=== PATIENT | female | born 1945 | race Hispanic/Latino ===

== ENCOUNTER 2023-06-24 16:07 | Emergency (ER) | payer OTHER ==
[2023-06-24 17:16] LABS: Absolute Basophils 0.1 K/uL (0-0.5); Absolute Lymphocytes (CBC) 1.6 K/uL (0.7-4.9); Absolute Monocytes 0.6 K/uL (0.1-1.3); Absolute Neutrophil 7.9 K/uL (1.8-8.0); Basophils % 0.5 % (0-1.3); Eosinophils % 0.4 % (0-4.4); Hematocrit 42.5 % (36.0-45.0); Hemoglobin 14.8 g/dL (12.0-15.0); Lymphocytes % 15.6 % (15.3-44.8); MCH 29.6 pg (27.0-35.0); MCHC 34.8 g/dL (32.0-36.0); MCV 85.3 fL (80-100); MPV 7.2 fL (7.6-11.3); Monocytes % 6.4 % (3.3-12.3); Neutrophils % 77.1 % (41.7-73.7); Nucleated Red Blood Cells % 0.2 % (0-0); Platelets 275 thou/uL (152-406); RBC Red Blood Cell Count 4.98 M/uL (3.86-4.86)
[2023-06-24 17:26] LABS: Albumin 3.4 g/dL (3.4-5.0); Albumin/Globulin Ratio 0.9 (1.1-1.8); Anion Gap 6.2 mEq/L (5.0-15.0); Bilirubin Direct 0.3 mg/dL (0-0.2); Bilirubin Indirect, Calculated 0.8 mg/dL (0.2-0.8); Bilirubin Total 1.1 mg/dL (0.2-1.0); Globulin 3.6 g/dL (2.3-3.5); Magnesium 1.9 mg/dL (1.6-2.4); Potassium 3.2 mEq/L (3.5-5.1); Troponin High Sensitivity 7.2 pg/mL (<58.9)
[2023-06-24] MEDS ORDERED: cloNIDine HCL 0.1 MG TAB ONE (17:52)
--- NOTE | 2023-06-24 18:31 | RAD REPORT ---
EXAM DESCRIPTION: CT - Head Brain Wo Cont - 06/24/2023 6:18 pm CLINICAL HISTORY: Dizziness/headache COMPARISON: 2014 TECHNIQUE: Computed axial tomography of the head was obtained. IV contrast was not requested. All CT scans are performed using dose optimization technique as appropriate and may include automated exposure control or mA/KV adjustment according to patient size. FINDINGS: An intracranial bleed is not seen The ventricles are normal in caliber No extra-axial fluid collection is noted. No significant hyperdensity with the brain noted. Fluid within the sinuses/ mastoids is not seen. Chronic left maxillary sinusitis IMPRESSION: No acute intracranial abnormality is seen If patient's symptoms persist MRI of the brain would be recommended
[2023-06-24] MEDS ORDERED: ONDANSETRON 4 MG/2 ML VIAL ONE (18:36)
--- NOTE | 2023-06-24 18:45 | RAD REPORT ---
EXAM DESCRIPTION: CTHead angio06/24/2023 6:18 pm CLINICAL HISTORY: Headache, dizziness, hypertension COMPARISON: none TECHNIQUE: 100 cc Isovue [address] angiogram of the head was obtained. 3D MIPS reconstruction performed. All CT scans are performed using dose optimization technique as appropriate and may include automated exposure control or mA/KV adjustment according to patient size. FINDINGS: The basilar, anterior cerebral, middle cerebral and posterior cerebral arteries do not dem onstrate a significant stenosis origin right posterior cerebral artery Mild calcified plaque distal internal carotid arteries An aneurysm is not seen No large vessel occlusion IMPRESSION: No significant abnormality is displayed
--- NOTE | 2023-06-24 18:46 | RAD REPORT ---
EXAM DESCRIPTION: Hoa Angio06/24/2023 6:18 pm CLINICAL HISTORY: Dizziness/headache/hypertension COMPARISON: None TECHNIQUE: 100 cc Isovue [address] angiogram of the neck was obtained. 3D MIPS reconstruction performed. All CT scans are performed using dose optimization technique as appropriate and may include automated exposure control or mA/KV adjustment according to patient size. FINDINGS: Visualized aortic arch and great vessels demonstrate no significant abnormality Mild calcified plaque within the common carotid, internal carotid and external carotid arteries bilat erally unremarkable Vertebral arteries unremarkable No dissection is seen. No high-grade stenosis [place] crieria Mild stenosis 0 to 49 % Moderate stenosis 50-69% Severe stenosis 70-99% IMPRESSION: No significant abnormality is displayed
--- NOTE | 2023-06-24 19:05 | ER ---
Nurse's Notes [facility] Name: Cathi Carrillo Age: 77 yrs Sex: Female : 1945 Arrival Date: 06/24/2023 Time: 16:07 Bed 15 Private MD: Diagnosis: Essential (primary) hypertension;Headache Presentation: 06/23 16:11 Chief complaint: Patient states: dizziness, nausea, feeling lightheaded. pt reports she as6 believes it's her new medicine. Coronavirus screen: At this time, the client does not indicate any symptoms associated with coronavirus-19. Ebola Screen: No symptoms or risks identified at this time. Initial Sepsis Screen: Does the patient meet any 2 criteria? No. Patient's initial sepsis screen is negative. Does the patient have a suspected source of infection? No. Patient's initial sepsis screen is negative. Risk Assessment: Do you want to hurt yourself or someone else? Patient reports no desire to harm self or others. Onset of symptoms was June 24, 2023. 16:11 Method Of Arrival: Ambulatory as6 16:11 Acuity: CAMILLE 3 as6 Historical: - Allergies: 16:12 Codeine; as6 - Home Meds: 19:35 losartan-hydrochlorothiazide 100-25 mg Oral tablet daily [Active]; metoprolol tartrate tl4 50 mg Oral tablet 2 times per day [Active]; pravastatin 40 mg Oral tablet every day at bedtime [Active]; - PMHx: 16:12 Hypercholesterolemia; Hypertensive disorder; as6 - PSHx: 16:12 Appendectomy; hernia; as6 - Immunization history:: Adult Immunizations up to date. - Infectious Disease History:: Denies. - Social history:: Smoking status: Patient denies any tobacco usage or history of. Screenin:44 [facility] ED Fall Risk Assessment (Adult) History of falling in the last 3 months, tl4 including since admission No falls in past 3 months (0 pts) Confusion or Disorientation No (0 pts) Intoxicated or Sedated No (0 pts) Impaired Gait No (0 pts) Mobility Assist Device Used No (0 pt) Altered Elimination No (0 pt) Score/Fall Risk Level 0 - 2 = Low Risk Oriented to surroundings, Maintained a safe environment, Educated pt \T\ family on fall prevention, incl call for assistance when getting out of bed, Assessed \T\ reinforced patient's understanding of fall precautions. Abuse screen: Denies threats or abuse. Denies injuries from another. Nutritional screening: No deficits noted. Tuberculosis screening: No symptoms or risk factors identified. Assessment: 16:25 General: Appears in no apparent distress. Behavior is calm, cooperative. Pain: Denies tl4 pain. Neuro: Level of Consciousness is awake, alert, obeys commands, Oriented to person, place, time, situation, Moves all extremities. Speech is normal, Facial symmetry appears normal, Pupils are PERRLA, Intact. Neuro: Reports dizziness. Cardiovascular: Capillary refill < 3 seconds Patient's skin is warm and dry. Respiratory: Airway is patent Respiratory effort is even, unlabored, Respiratory pattern is regular, symmetrical, Breath sounds are clear bilaterally. GI: Abdomen is non-distended, Abd is soft and non tender X 4 quads. Reports nausea. : No deficits noted. EENT: No signs and/or symptoms were reported regarding the EENT system. Derm: No signs and/or symptoms reported regarding the dermatologic system. Musculoskeletal: No signs and/or symptoms reported regarding the musculoskeletal system. 17:42 Reassessment: Patient and/or family updated on plan of care and expected duration. Pain tl4 level reassessed. Patient is alert, oriented x 3, equal unlabored respirations, skin warm/dry/pink. Patient denies pain at this time. 18:57 Reassessment: Patient and/or family updated on plan of care and expected duration. Pain tl4 level reassessed. Patient is alert, oriented x 3, equal unlabored respirations, skin warm/dry/pink. Pt states nausea is better. Pt denies any needs at this time. Family at bedside. Will continue to monitor Patient denies pain at this time. Vital Signs: 16:11 BP 199 / 79; Pulse 66; Resp 18 S; Temp 97.8(TE); Pulse Ox 95% on R/A; Weight 92.99 kg as6 (R); Height 5 ft. 0 in. (R); Pain 0/10; 17:00 BP 170 / 77; Pulse 64; Resp 18; Pulse Ox 100% on R/A; tl4 17:30 BP 175 / 82; Pulse 65; Resp 14; Pulse Ox 100% on R/A; tl4 18:00 BP 171 / 80; Pulse 64; Resp 19; Pulse Ox 100% on R/A; tl4 18:38 BP 170 / 71; Pulse 74; Resp 17; Pulse Ox 100% on R/A; tl4 19:32 BP 185 / 84; Pulse 78; Resp 19; Temp 98.4(O); Pulse Ox 100% ; tl4 16:11 Body Mass Index 40.04 (92.99 kg, 152.4 cm) as6 16:11 Pain Scale: Adult as6 ED Course: 16:08 Patient arrived in ED. im 16:11 Basilia Pérez FNP-C is PHCP. kb 16:11 Aaron Odom MD is Attending Physician. kb 16:12 Triage completed. as6 16:12 Arm band placed on right wrist. as6 16:22 Phil Cain, RN is Primary Nurse. tl4 16:33 Provided Education on: ED process, call castaneda. tl4 16:57 Cool cloth applied. Client placed on continuous cardiac and pulse oximetry monitoring. [email or web address] NIBP monitoring applied. production hand on. Pulse ox on. 16:57 Initial lab(s) drawn, by me, sent to lab. EKG done, by ED staff. jg11 16:57 Inserted saline lock: 22 gauge in right antecubital area, using aseptic technique. jg11 Blood collected. 18:20 CT Head Angio In Process Unspecified. EDMS 18:20 CT Neck Angio In Process Unspecified. EDMS 18:20 CT Head Brain wo Cont In Process Unspecified. EDMS 18:45 No provider procedures requiring assistance completed. tl4 19:33 IV discontinued, intact, bleeding controlled, No redness/swelling at site. Pressure tl4 dressing applied. 19:34 Patient has correct armband on for positive identification. Placed in gown. Bed in low tl4 position. Call light in reach. Side rails up X2. Adult w/ patient. Administered Medications: 17:56 Drug: cloNIDine PO 0.1 mg PO once Route: PO; tl4 19:02 Follow up: Response: No adverse reaction tl4 19:02 Drug: Ondansetron IVP 4 mg IVP once; over 2 minutes Route: IVP; Infused Over: 2 mins; tl4 Site: right antecubital; 19:31 Follow up: Response: No adverse reaction; Nausea is decreased tl4 Medication: 18:45 VIS not applicable for this client. tl4 Outcome: 19:04 Discharge ordered by MD. vogel 19:33 Discharged to home ambulatory, with family, tl4 19:33 Condition: stable 19:33 Discharge instructions given to patient, family, Instructed on discharge instructions, follow up and referral plans. Demonstrated understanding of instructions, follow-up care, 19:35 Patient left the ED. tl4 Signatures: Dispatcher [employer] EDBasilia Nugent, RERE HOOPER-[place] Ibrahim RN RN as6 Susy Cruz Toni RN RN tl4 Joseph Jade jg11
--- NOTE | 2023-06-24 19:05 | EDPHYS ---
Physician Documentation [facility] Name: Cathi Carrillo Age: 77 yrs Sex: Female : 1945 Arrival Date: 06/24/2023 Time: 16:07 Bed 15 Private MD: ED Physician Aaron Odom HPI: 06/23 16:17 This 77 yrs old Female presents to ER via Ambulatory with complaints of High kb Blood Pressure, Dizziness, Nausea. 16:17 Pt is a 77 year old female who presents for high blood pressure, headache and dizziness kb that started this morning. states she takes losartan, metoprolol and HCTZ for HTN and took all medications this morning as normal. States she has been told to take a second dose of losartan if her BP is over 140 so she took a second dose around 1330, but pressure has not improved. Pt states she was seen by a neurologist yesterday for tremors and started on primidone. There have been no other changes in diet or medications. Historical: - Allergies: 16:12 Codeine; as6 - Home Meds: 19:35 losartan-hydrochlorothiazide 100-25 mg Oral tablet daily [Active]; metoprolol tartrate tl4 50 mg Oral tablet 2 times per day [Active]; pravastatin 40 mg Oral tablet every day at bedtime [Active]; - PMHx: 16:12 Hypercholesterolemia; Hypertensive disorder; as6 - PSHx: 16:12 Appendectomy; hernia; as6 - Immunization history:: Adult Immunizations up to date. - Infectious Disease History:: Denies. - Social history:: Smoking status: Patient denies any tobacco usage or history of. ROS: 16:24 Constitutional: As per HPI kb Exam: 16:24 Constitutional: This is a well developed, well nourished patient who is awake, alert, kb and in no acute distress. Head/Face: Normocephalic, atraumatic. ENT: Moist Mucous membranes Cardiovascular: Regular rate Respiratory: Respirations even and unlabored. No increased work of breathing. Talking in full sentences Abdomen/GI: Soft, non-tender. No distention Skin: Warm, dry with normal turgor. Normal color. MS/ Extremity: Pulses equal, no cyanosis. Neurovascular intact. Full, normal range of motion. Neuro: Awake and alert, GCS 15, oriented to person, place, time, and situation. Moves all extremities. Normal gait. 19:33 ECG was reviewed by the Attending Physician. kb Vital Signs: 16:11 BP 199 / 79; Pulse 66; Resp 18 S; Temp 97.8(TE); Pulse Ox 95% on R/A; Weight 92.99 kg as6 (R); Height 5 ft. 0 in. (R); Pain 0/10; 17:00 BP 170 / 77; Pulse 64; Resp 18; Pulse Ox 100% on R/A; tl4 17:30 BP 175 / 82; Pulse 65; Resp 14; Pulse Ox 100% on R/A; tl4 18:00 BP 171 / 80; Pulse 64; Resp 19; Pulse Ox 100% on R/A; tl4 18:38 BP 170 / 71; Pulse 74; Resp 17; Pulse Ox 100% on R/A; tl4 19:32 BP 185 / 84; Pulse 78; Resp 19; Temp 98.4(O); Pulse Ox 100% ; tl4 16:11 Body Mass Index 40.04 (92.99 kg, 152.4 cm) as6 16:11 Pain Scale: Adult as6 MDM: 16:11 Patient medically screened. kb 19:04 Differential diagnosis: hypertensive crisis, CVA, intracerebral hemorrhage, medication kb interaction. Data reviewed: vital signs, nurses notes. Historians other than the Patient: Daughter/Son: daughter. Counseling: I had a detailed discussion with the patient and/or guardian regarding the historical points, exam findings, and any diagnostic results supporting the discharge/admit diagnosis, lab results, radiology results, the need for outpatient follow up, a family practitioner, to return to the emergency department if symptoms worsen or persist or if there are any questions or concerns that arise at home. 06/23 16:16 Order name: Basic Metabolic Panel; Complete Time: 17:34 kb 06/23 16:16 Order name: CBC with Diff; Complete Time: 17:17 kb 06/23 16:16 Order name: Hepatic Function; Complete Time: 17:34 kb 06/23 16:16 Order name: Magnesium; Complete Time: 17:34 kb 06/23 16:16 Order name: Troponin High Sensitivity; Complete Time: 17:34 kb 06/23 17:41 Order name: CT Head Angio; Complete Time: 18:50 kb 06/23 17:41 Order name: CT Neck Angio; Complete Time: 18:50 kb 06/23 18:09 Order name: CT Head Brain wo Cont; Complete Time: 18:32 kb 06/23 16:16 Order name: Cardiac monitoring; Complete Time: 17:50 kb 06/23 16:16 Order name: EKG - Nurse/Tech; Complete Time: 17:50 kb 06/23 16:16 Order name: IV Saline Lock; Complete Time: 17:50 kb 06/23 16:16 Order name: Labs collected and sent; Complete Time: 17:50 kb 06/23 16:16 Order name: NPO; Complete Time: 17:50 kb 06/23 16:16 Order name: O2 Per Protocol; Complete Time: 16:25 kb 06/23 16:16 Order name: O2 Sat Monitoring; Complete Time: 16:25 kb EC:33 Rate is 61 beats/min. Rhythm is regular. QRS [place] is Normal. DE interval is normal at kb 150 msec. QRS interval is normal at 92 msec. QT interval is prolonged at 642 msec. Administered Medications: 17:56 Drug: cloNIDine PO 0.1 mg PO once Route: PO; tl4 19:02 Follow up: Response: No adverse reaction tl4 19:02 Drug: Ondansetron IVP 4 mg IVP once; over 2 minutes Route: IVP; Infused Over: 2 mins; tl4 Site: right antecubital; 19:31 Follow up: Response: No adverse reaction; Nausea is decreased tl4 Disposition Summary: 06/24/23 19:04 Discharge Ordered Notes: Location: Home kb Condition: Stable kb Diagnosis - Essential (primary) hypertension kb - Headache kb Followup: kb - With: Emergency Department - When: As needed - Reason: Worsening of condition Followup: kb - With: Private Physician - When: 2 - 3 days - Reason: Recheck today's complaints, Continuance of care, Re-evaluation by your physician Discharge Instructions: - Discharge Summary Sheet kb - Hypertension, Adult, [id number] kb - General Headache Without Cause, [id number] kb Forms: - Medication Reconciliation Form kb - Antibiotic Education kb - Prescription Opioid Use kb - Patient Portal Instructions kb - Leadership Thank You Letter kb Signatures: Dispatcher [employer] Basilia Devries, WILDLIFE ECOLOGY PROFESSOR-C SANDIE-[place] Ibrahim RN RN as6 Phil Cain RN RN tl4 Corrections: (The following items were deleted from the chart) 16:17 16:17 BASIC METABOLIC PANEL+C.LAB.BRZ ordered. EDMS EDMS 16:17 16:17 CBC+H.LAB.BRZ ordered. EDMS EDMS 16:17 16:17 HEPATIC FUNCTION+C.LAB.BRZ ordered. EDMS EDMS 16:17 16:17 MAGNESIUM+C.LAB.BRZ ordered. EDMS EDMS 16:17 16:17 Troponin High Sensitivity+C.LAB.BRZ ordered. EDMS EDMS 18:09 18:09 Head Brain Wo Cont+CT.RAD.BRZ ordered. EDMS EDMS
[2023-06-24 19:56] VITALS: BP 185/84; TEMP 98.4; O2SAT 100
== END 2023-06-24 19:35 | disposition home or self-care (01) ==
LOC: ER 16:07
DX: I10 Essential (primary) hypertension (principal); R51.9 Headache, unspecified; Z88.5 Allergy status to narcotic agent
CPT/HCPCS: 85025; 80048; 36415; 83735; 80076; 84484; 70450; 70496; 70498; Q9967 ×2; J2405; 93005